=== PATIENT | male | born 1975 | race Caucasian/White ===

== ENCOUNTER 2018-07-10 10:10 | Emergency (ER) | payer SELFPAY ==
[2018-07-10] MEDS ORDERED: DEXAMETHASONE 10 MG/ML VIAL ONE (10:47)
--- NOTE | 2018-07-10 10:50 | EDPHYS ---
Physician Documentation [facility] Name: Eamon Ring Age: 42 yrs Sex: Male : 1975 Arrival Date: 07/10/2018 Time: 10:12 Bed 14 Private MD: None, None ED Physician Kane Barrera HPI: 07/10 10:35 This 42 yrs old Male presents to ER via Ambulatory with complaints of POISON pm1 ROSEANN. 10:36 The patient's rash thought to be caused by poison roseann. The rash is located on the pm1 abdomen, right hand and left leg. Onset: The symptoms/episode began/occurred 2 day(s) ago. Associated signs and symptoms: Pertinent positives: itching, Pertinent negatives: difficulty breathing, fever, swelling of lips, swelling of throat, swelling of tongue, wheezing. Severity of symptoms: in the emergency department the symptoms are worse. Treatment given at home: Patient was applying bleach on his rash. The patient has not recently seen a physician. Patient working on his yard two days ago and was exposed to poison roseann. Patient reports tetanus is within 5 years. Historical: - Allergies: 10:23 Demerol; aj1 - Home Meds: 10:23 None [Active]; aj1 - PMHx: 10:23 Crohn's; aj1 - PSHx: 10:23 None; aj1 - Immunization history:: Flu vaccine is not up to date. - Social history:: Smoking status: Patient/guardian denies using tobacco. - Ebola Screening: : Patient denies travel to an Ebola-affected area in the 21 days before illness onset. ROS: 10:39 Constitutional: Negative for fever, chills, and weight loss, Eyes: Negative for injury, pm1 pain, redness, and discharge, ENT: Negative for injury, pain, and discharge, Neck: Negative for injury, pain, and swelling, Cardiovascular: Negative for chest pain, palpitations, and edema, Respiratory: Negative for shortness of breath, cough, wheezing, and pleuritic chest pain, Abdomen/GI: Negative for abdominal pain, nausea, vomiting, diarrhea, and constipation, Back: Negative for injury and pain, MS/Extremity: Negative for injury and deformity. 10:39 Neuro: Negative for headache, weakness, numbness, tingling, and seizure. 10:39 Skin: Positive for rash, of the left leg and right hand and abdomen. Exam: 10:39 Constitutional: This is a well developed, well nourished patient who is awake, alert, pm1 and in no acute distress. Head/Face: Normocephalic, atraumatic. Eyes: Pupils equal round and reactive to light, extra-ocular motions intact. Lids and lashes normal. Conjunctiva and sclera are non-icteric and not injected. Cornea within normal limits. Periorbital areas with no swelling, redness, or edema. ENT: Nares patent. No nasal discharge, no septal abnormalities noted. Tympanic membranes are normal and external auditory canals are clear. Oropharynx with no redness, swelling, or masses, exudates, or evidence of obstruction, uvula midline. Mucous membranes moist. Neck: Trachea midline, no thyromegaly or masses palpated, and no cervical lymphadenopathy. Supple, full range of motion without nuchal rigidity, or vertebral point tenderness. No Meningismus. Chest/axilla: Normal chest wall appearance and motion. Nontender with no deformity. No lesions are appreciated. Cardiovascular: Regular rate and rhythm with a normal S1 and S2. No gallops, murmurs, or rubs. Normal PMI, no JVD. No pulse deficits. Respiratory: Lungs have equal breath sounds bilaterally, clear to auscultation and percussion. No rales, rhonchi or wheezes noted. No increased work of breathing, no retractions or nasal flaring. Abdomen/GI: Soft, non-tender, with normal bowel sounds. No distension or tympany. No guarding or rebound. No evidence of tenderness throughout. Back: No spinal tenderness. No costovertebral tenderness. Full range of motion. 10:39 MS/ Extremity: Pulses equal, no cyanosis. Neurovascular intact. Full, normal range of motion. 10:39 Skin: Appearance: normal except for affected area, consistent with contact dermatitis, on the left ward and dorsum of left foot and right hand and abdomen. 10:39 Neuro: Orientation: is normal, Motor: is normal, Sensation: is normal, no obvious gross deficits. Vital Signs: 10:23 BP 135 / 107; Pulse 102; Resp 18; Temp 98.3(O); Pulse Ox 95% on R/A; Weight 79.38 kg aj1 (R); Height 5 ft. 10 in. (177.80 cm) (R); Pain 0/10; 10:23 Body Mass Index 25.11 (79.38 kg, 177.80 cm) aj1 MDM: 10:26 Patient medically screened. pm1 10:46 Data reviewed: vital signs. Counseling: I had a detailed discussion with the patient pm1 and/or guardian regarding: the historical points, exam findings, and any diagnostic results supporting the discharge/admit diagnosis, the need for outpatient follow up, to return to the emergency department if symptoms worsen or persist or if there are any questions or concerns that arise at home. Administered Medications: 10:45 Drug: Decadron - Dexamethasone 10 mg {Note: By mouth.} Route: IVP; Site: Other; rb1 10:56 Follow up: Response: No adverse reaction rb1 Disposition: 11:58 Co-signature as Attending Physician, Kane Barrera MD. rn Disposition: 07/10/18 10:49 Discharged to Home. Impression: Unspecified contact dermatitis due to plants, except food - poison roseann. - Condition is Stable. - Discharge Instructions: Poison Roseann Dermatitis, [id number]. - Prescriptions for Benadryl 25 mg Oral Capsule - take 1 capsule by ORAL route every 6 hours As needed; 30 tablet. Pepcid 20 mg Oral Tablet - take 1 tablet by ORAL route every 12 hours for 10 days; 20 tablet. Prednisone 20 mg Oral Tablet - take 3 tablet by ORAL route once daily for 5 days; 15 tablet. Bactrim DS 800- 160 mg Oral Tablet - take 1 tablet by ORAL route every 12 hours for 10 days; 20 tablet. - Medication Reconciliation Form, Thank You Letter, Antibiotic Education form. - Follow up: Emergency Department; When: As needed; Reason: Worsening of condition. Follow up: Private Physician; When: 2 - 3 days; Reason: Recheck today's complaints, Continuance of care, Re-evaluation by your physician. - Problem is new. - Symptoms have improved. Signatures: Tiffany Hayden RN RN aj1 Kane Barrera MD MD rn Barber, Rebecca, RN RN rb1 Josh Krueger, ROSALIE ALARM TECHNICIAN pm1 Corrections: (The following items were deleted from the chart) 10:57 10:49 07/10/2018 10:49 Discharged to Home. Impression: Unspecified contact dermatitis rb1 due to plants, except food - poison roseann. Condition is Stable. Forms are Medication Reconciliation Form, Thank You Letter, Antibiotic Education, Prescription Opioid Use. Follow up: Emergency Department; When: As needed; Reason: Worsening of condition. Follow up: Private Physician; When: 2 - 3 days; Reason: Recheck today's complaints, Continuance of care, Re-evaluation by your physician. Problem is new. Symptoms have improved. pm1
--- NOTE | 2018-07-10 10:50 | ER ---
Nurse's Notes [facility] Name: Eamon Ring Age: 42 yrs Sex: Male : 1975 Arrival Date: 07/10/2018 Time: 10:12 Bed 14 Private MD: None, None Diagnosis: Unspecified contact dermatitis due to plants, except food-poison rodolfo Presentation: 07/10 10:18 Presenting complaint: Patient states: He got into poison rodolfo a couple days ago, but it aj1 keeps spreading. Rash noted to left hand, right hand, right lower arm, abdomen and bilateral legs. Transition of care: patient was not received from another setting of care. Onset of symptoms was July 08, 2018. Risk Assessment: Do you want to hurt yourself or someone else? Patient reports no desire to harm self or others. Initial Sepsis Screen: Does the patient meet any 2 criteria? No. Patient's initial sepsis screen is negative. Does the patient have a suspected source of infection? No. Patient's initial sepsis screen is negative. Care prior to arrival: None. 10:18 Method Of Arrival: Ambulatory aj1 10:18 Acuity: GUMARO 4 aj1 Triage Assessment: 10:23 General: Appears in no apparent distress. comfortable, Behavior is calm, cooperative, aj1 appropriate for age. Pain: Denies pain. Neuro: Level of Consciousness is awake, alert, obeys commands. Cardiovascular: Patient's skin is warm and dry. Respiratory: Airway is patent Respiratory effort is even, unlabored, Respiratory pattern is regular, symmetrical. Historical: - Allergies: 10:23 Demerol; aj1 - Home Meds: 10:23 None [Active]; aj1 - PMHx: 10:23 Crohn's; aj1 - PSHx: 10:23 None; aj1 - Immunization history:: Flu vaccine is not up to date. - Social history:: Smoking status: Patient/guardian denies using tobacco. - Ebola Screening: : Patient denies travel to an Ebola-affected area in the 21 days before illness onset. Screenin:30 Abuse screen: Denies threats or abuse. Nutritional screening: No deficits noted. rb1 Tuberculosis screening: No symptoms or risk factors identified. Fall Risk None identified. Assessment: 10:30 General: Appears in no apparent distress. comfortable, slender, Behavior is calm, rb1 cooperative. Neuro: Level of Consciousness is awake, alert, obeys commands, Oriented to person, place, time, situation. Cardiovascular: Capillary refill < 3 seconds is brisk in bilateral fingers. Respiratory: Airway is patent Respiratory effort is even, unlabored, Respiratory pattern is regular, symmetrical. GI: No signs and/or symptoms were reported involving the gastrointestinal system. : No signs and/or symptoms were reported regarding the genitourinary system. Derm: Rash noted that is itchy, red, vesicular, on bilateral hands, arms, abdomen, and left leg. Musculoskeletal: Swelling present in left first toe. 10:30 Pain: Denies pain. rb1 Vital Signs: 10:23 BP 135 / 107; Pulse 102; Resp 18; Temp 98.3(O); Pulse Ox 95% on R/A; Weight 79.38 kg aj1 (R); Height 5 ft. 10 in. (177.80 cm) (R); Pain 0/10; 10:23 Body Mass Index 25.11 (79.38 kg, 177.80 cm) aj1 ED Course: 10:12 Patient arrived in ED. sb2 10:12 None, None is Private Physician. sb2 10:22 Triage completed. aj1 10:23 Arm band placed on Patient placed in an exam room. aj1 10:26 Josh Krueger NP is PHCP. pm1 10:26 Kane Barrera MD is Attending Physician. pm1 10:30 Patient has correct armband on for positive identification. Bed in low position. Call rb1 light in reach. Side rails up X 1. Pulse ox on. NIBP on. 10:35 Maida Sotelo, RN is Primary Nurse. rb1 10:56 No provider procedures requiring assistance completed. Patient did not have IV access rb1 during this emergency room visit. Administered Medications: 10:45 Drug: Decadron - Dexamethasone 10 mg {Note: By mouth.} Route: IVP; Site: Other; rb1 10:56 Follow up: Response: No adverse reaction rb1 Outcome: 10:49 Discharge ordered by . pm1 10:56 Discharged to home ambulatory. rb1 10:56 Condition: stable 10:56 Discharge instructions given to patient, Instructed on discharge instructions, follow up and referral plans. medication usage, Demonstrated understanding of instructions, follow-up care, medications, Prescriptions given X 4. 10:57 Patient left the ED. rb1 Signatures: Tiffany Hayden RN RN aj1 Maida Sotelo RN RN rb1 Josh Krueger, INSTRUCTIONAL TECHNOLOGY SPECIALIST INSTRUCTIONAL TECHNOLOGY SPECIALIST pm1 Ayana Ibanez2
== END 2018-07-10 10:57 | disposition home or self-care (01) ==
LOC: ER 10:10
DX: L25.5 Unspecified contact dermatitis due to plants, except food (principal); Z88.5 Allergy status to narcotic agent; K50.90 Crohn's disease, unspecified, without complications
CPT/HCPCS: 96374; 99283; J1100

== ENCOUNTER 2019-01-30 10:49 | Emergency (ER) | payer SELFPAY ==
[2019-01-30] MEDS ORDERED: ACETAMINOPHEN 500 MG TAB ONE (11:20)
--- NOTE | 2019-01-30 11:47 | ER ---
Nurse's Notes [facility] Name: Eamon Ring Age: 43 yrs Sex: Male : 1975 Arrival Date: 01/30/2019 Time: 10:50 Bed 12 Private MD: Diagnosis: Influenza due to identified novel influenza A virus Presentation: 01/30 11:04 Presenting complaint: Patient states: I started having a cough 2 days ago and have just la1 gotten sicker and sicker, pt denies vomiting, reports fatigue and body aches. Transition of care: patient was not received from another setting of care. Onset of symptoms was January 30, 2019. Risk Assessment: Do you want to hurt yourself or someone else? Patient reports no desire to harm self or others. Initial Sepsis Screen: Does the patient meet any 2 criteria?. Care prior to arrival: None. 11:04 Method Of Arrival: Ambulatory la1 11:04 Acuity: GUMARO 4 la1 Historical: - Allergies: 11:05 Demerol; la1 - PMHx: 11:05 Crohn's; la1 - Immunization history:: Adult Immunizations up to date. - Social history:: Smoking status: Patient/guardian denies using tobacco. - Ebola Screening: : No symptoms or risks identified at this time. Screenin:23 Abuse screen: Denies threats or abuse. Nutritional screening: No deficits noted. la1 Tuberculosis screening: No symptoms or risk factors identified. Fall Risk None identified. Assessment: 11:23 General: Appears ill, Behavior is cooperative. Neuro: Level of Consciousness is awake, la1 alert, obeys commands, Oriented to person, place, time, situation. Cardiovascular: Capillary refill < 3 seconds Patient's skin is warm and dry. Respiratory: Airway is patent Respiratory effort is even, unlabored, Respiratory pattern is regular, symmetrical, Parent/caregiver reports the patient having cough that is. GI: Abdomen is round non-distended, Patient currently denies diarrhea, vomiting. : No signs and/or symptoms were reported regarding the genitourinary system. 11:30 General: Appears uncomfortable, ill, Behavior is calm, cooperative, Reports fatigue aa5 for. Pain: Complains of pain in whole body Pain currently is 8 out of 10 on a pain scale. Quality of pain is described as aching. Neuro: Level of Consciousness is awake, alert, obeys commands, Oriented to person, place, time, situation. Cardiovascular: Heart tones S1 S2 present Rhythm is regular. Respiratory: Reports cough Airway is patent Respiratory effort is even, unlabored, Respiratory pattern is regular, symmetrical, Breath sounds are clear bilaterally. GI: Patient currently denies nausea, vomiting. : No signs and/or symptoms were reported regarding the genitourinary system. EENT: No signs and/or symptoms were reported regarding the EENT system. Derm: Skin is dry, Skin is flushed, Skin temperature is warm. Musculoskeletal: Range of motion: intact in all extremities. Vital Signs: 11:05 BP 127 / 80; Pulse 112; Resp 18; Temp 102; Pulse Ox 100% on R/A; Weight 77.11 kg; la1 Height 5 ft. 10 in. (177.80 cm); 11:48 BP 120 / 67; Pulse 118; Resp 20 S; Temp 102.7(O); Pulse Ox 94% on R/A; aa5 11:05 Body Mass Index 24.39 (77.11 kg, 177.80 cm) la1 11:48 ROSALIE Nichols notified of current VS, no further orders received. DEMOGRAPHER states to d/c pt now. aa5 ED Course: 10:50 Patient arrived in ED. as 11:05 Triage completed. la1 11:05 Arm band placed on left wrist. la1 11:17 Magdalena Mckinney FNP-C [facility]. snw 11:17 Luis Manuel Ware MD is Attending Physician. snw 11:23 Call light in reach. la1 11:37 Sommer Husain, CARLOS MANUEL is Primary Nurse. aa5 11:50 No provider procedures requiring assistance completed. aa5 11:50 Patient did not have IV access during this emergency room visit. aa5 Administered Medications: 11:10 Drug: Tylenol 1000 mg Route: PO; la1 11:48 Follow up: Response: No adverse reaction; Temperature is increased aa5 Outcome: 11:47 Discharge ordered by . snw 11:55 Discharged to home ambulatory. aa5 11:55 Condition: stable 11:55 Discharge instructions given to patient, Instructed on discharge instructions, follow up and referral plans. medication usage, Demonstrated understanding of instructions, follow-up care, medications, Prescriptions given X 2. 12:01 Patient left the ED. aa5 Signatures: Magdalena Mckinney, BUSINESS AFFAIRS MANAGER-C BUSINESS AFFAIRS MANAGER-Csnw Paola Sewell Audri, RN RN aa5 Oscar Chadwick RN RN la1
--- NOTE | 2019-01-30 11:47 | EDPHYS ---
Physician Documentation [facility] Name: Eamon Ring Age: 43 yrs Sex: Male : 1975 Arrival Date: 01/30/2019 Time: 10:50 Bed 12 Private MD: ED Physician Luis Manuel Ware HPI: 01/30 11:28 This 43 yrs old Male presents to ER via Ambulatory with complaints of Flu snw Symptoms. 11:28 This 43 yrs old Male presents to ER via Ambulatory with complaints of Flu snw Symptoms. 11:28 The patient or guardian reports cough, flu symptoms, low-grade fever, myalgias, no snw appetite. Onset: The symptoms/episode began/occurred suddenly, 2 day(s) ago. Modifying factors: The symptoms are alleviated by nothing. Severity of symptoms: At their worst the symptoms were moderate severe in the emergency department the symptoms are unchanged. It is unknown whether or not the patient has had similar symptoms in the past. The patient has not recently seen a physician. PMH of Crohn's. Historical: - Allergies: 11:05 Demerol; la1 - PMHx: 11:05 Crohn's; la1 - Immunization history:: Adult Immunizations up to date. - Social history:: Smoking status: Patient/guardian denies using tobacco. - Ebola Screening: : No symptoms or risks identified at this time. ROS: 11:26 Constitutional: Negative for fever, chills, and weight loss, Eyes: Negative for injury, snw pain, redness, and discharge, ENT: Negative for injury, pain, and discharge, Neck: Negative for injury, pain, and swelling, Respiratory: Negative for shortness of breath, cough, wheezing, and pleuritic chest pain. 11:26 Abdomen/GI: Negative for abdominal pain, nausea, vomiting, diarrhea, and constipation, Back: Negative for injury and pain, : Negative for injury, bleeding, discharge, and swelling, MS/Extremity: Negative for injury and deformity, Skin: Negative for injury, rash, and discoloration, Neuro: Negative for headache, weakness, numbness, tingling, and seizure, Psych: Negative for depression, anxiety, suicide ideation, homicidal ideation, and hallucinations. 11:26 Cardiovascular: Positive for chest pain, with cough. 11:26 Respiratory: Positive for cough. Exam: 11:26 Head/Face: Normocephalic, atraumatic. Eyes: Pupils equal round and reactive to light, snw extra-ocular motions intact. Lids and lashes normal. Conjunctiva and sclera are non-icteric and not injected. Cornea within normal limits. Periorbital areas with no swelling, redness, or edema. ENT: Nares patent. No nasal discharge, no septal abnormalities noted. Tympanic membranes are normal and external auditory canals are clear. Oropharynx with no redness, swelling, or masses, exudates, or evidence of obstruction, uvula midline. Mucous membranes moist. Neck: Trachea midline, no thyromegaly or masses palpated, and no cervical lymphadenopathy. Supple, full range of motion without nuchal rigidity, or vertebral point tenderness. No Meningismus. Chest/axilla: Normal chest wall appearance and motion. Nontender with no deformity. No lesions are appreciated. 11:26 Abdomen/GI: Soft, non-tender, with normal bowel sounds. No distension or tympany. No guarding or rebound. No evidence of tenderness throughout. Back: No spinal tenderness. No costovertebral tenderness. Full range of motion. Skin: Warm, dry with normal turgor. Normal color with no rashes, no lesions, and no evidence of cellulitis. MS/ Extremity: Pulses equal, no cyanosis. Neurovascular intact. Full, normal range of motion. Neuro: Awake and alert, GCS 15, oriented to person, place, time, and situation. Cranial nerves II-XII grossly intact. Motor strength 5/5 in all extremities. Sensory grossly intact. Cerebellar exam normal. Normal gait. 11:26 Constitutional: The patient appears alert, frail, uncomfortable. 11:26 Cardiovascular: Rate: tachycardic. 11:26 Respiratory: the patient does not display signs of respiratory distress, Respirations: normal, Breath sounds: + upper airway congestion. cough. Vital Signs: 11:05 BP 127 / 80; Pulse 112; Resp 18; Temp 102; Pulse Ox 100% on R/A; Weight 77.11 kg; la1 Height 5 ft. 10 in. (177.80 cm); 11:48 BP 120 / 67; Pulse 118; Resp 20 S; Temp 102.7(O); Pulse Ox 94% on R/A; aa5 11:05 Body Mass Index 24.39 (77.11 kg, 177.80 cm) la1 11:48 Magdalena, CHEMIST WATER PURIFICATION notified of current VS, no further orders received. CHEMIST WATER PURIFICATION states to d/c pt now. aa5 MDM: 11:17 Patient medically screened. snw 11:48 Data reviewed: vital signs, nurses notes. Data interpreted: Pulse oximetry: on room air snw is 100 %. Interpretation: normal. Counseling: I had a detailed discussion with the patient and/or guardian regarding: the historical points, exam findings, and any diagnostic results supporting the discharge/admit diagnosis, lab results, the need for outpatient follow up, for definitive care, to return to the emergency department if symptoms worsen or persist or if there are any questions or concerns that arise at home. Special discussion: Based on the history and exam findings, there is no indication for further emergent testing or inpatient evaluation. I discussed with the patient/guardian the need to see the wire photo operator for further evaluation of the symptoms. I discussed with the patient/guardian the need to see the primary care provider for further evaluation of the symptoms. 01/30 11:06 Order name: Strep; Complete Time: 11:49 la1 01/30 11:06 Order name: Flu; Complete Time: 11:46 la1 01/30 11:48 Order name: Throat Culture EDMS Administered Medications: 11:10 Drug: Tylenol 1000 mg Route: PO; la1 11:48 Follow up: Response: No adverse reaction; Temperature is increased aa5 Disposition: 01/31 11:53 Co-signature as Attending Physician, Luis Manuel Ware MD. Disposition: 01/30/19 11:47 Discharged to Home. Impression: Influenza due to identified novel influenza A virus. - Condition is Stable. - Discharge Instructions: Fever, Adult, Influenza, Adult, Cough, Adult, Rehydration, Adult. - Prescriptions for Ultram 50 mg Oral Tablet - take 1 tablet by ORAL route every 6 hours As needed; 15 tablet. Zofran 4 mg Oral Tablet - take 1 tablet by ORAL route every 12 hours As needed; 6 tablet. - Work release form, Medication Reconciliation Form, Thank You Letter, Antibiotic Education, Prescription Opioid Use form. - Follow up: Private Physician; When: 2 - 3 days; Reason: Recheck today's complaints, Continuance of care, Re-evaluation by your physician. Follow up: Emergency Department; When: As needed; Reason: Worsening of condition. Signatures: Dispatcher [employer] EDMS Magdalena Mckinney, TRUCK AND TRANSPORT MECHANIC-C TRUCK AND TRANSPORT MECHANIC-Csnw Sommer Husain RN RN aa5 Oscar Chadwick RN RN la1 Luis Manuel Ware MD MD gs Corrections: (The following items were deleted from the chart) 01/30 12:01 11:47 01/30/2019 11:47 Discharged to Home. Impression: Influenza due to identified aa5 novel influenza A virus. Condition is Stable. Forms are Medication Reconciliation Form, Thank You Letter, Antibiotic Education, Prescription Opioid Use. Follow up: Private Physician; When: 2 - 3 days; Reason: Recheck today's complaints, Continuance of care, Re-evaluation by your physician. Follow up: Emergency Department; When: As needed; Reason: Worsening of condition. snw
== END 2019-01-30 12:01 | disposition home or self-care (01) ==
LOC: ER 10:49
DX: J10.1 Influenza due to other identified influenza virus with other respiratory manifestations (principal); Z88.5 Allergy status to narcotic agent
CPT/HCPCS: 87070; 87081; 87804; 99283

== ENCOUNTER 2019-02-07 13:01 | Emergency (ER) | payer SELFPAY ==
[2019-02-07] MEDS ORDERED: ACETAMINOPHEN 500 MG TAB ONE (13:31)
--- NOTE | 2019-02-07 13:52 | RAD REPORT ---
EXAM DESCRIPTION: RAD - Chest Single View - 02/07/2019 1:47 pm CLINICAL HISTORY: COUGH Chest pain. COMPARISON: No comparisons FINDINGS: Portable technique limits examination quality. Small opacity is present in the left lung base, likely representing atelectasis or early pneumonia. T he lungs are otherwise clear. The heart is normal in size. No displaced fractures.
--- NOTE | 2019-02-07 14:40 | ER ---
Nurse's Notes [facility] Name: Eamon Ring Age: 43 yrs Sex: Male : 1975 Arrival Date: 02/07/2019 Time: 13:04 Bed 12 Private MD: None, None Diagnosis: Pneumonia due to other specified bacteria Presentation: 02/07 13:12 Presenting complaint: Patient states: "I tested positive for flu test B last week, but ss it's just getting worse.". Transition of care: patient was not received from another setting of care. Onset of symptoms was February 01, 2019. Risk Assessment: Do you want to hurt yourself or someone else? Patient reports no desire to harm self or others. Initial Sepsis Screen: Does the patient meet any 2 criteria? No. Patient's initial sepsis screen is negative. Does the patient have a suspected source of infection? No. Patient's initial sepsis screen is negative. Care prior to arrival: None. 13:12 Method Of Arrival: Ambulatory ss 13:12 Acuity: GUMARO 4 ss Historical: - Allergies: 13:15 Demerol; ss - PMHx: 13:15 Crohn's; ss - Immunization history:: Adult Immunizations up to date. - Social history:: Smoking status: Patient/guardian denies using tobacco. - Ebola Screening: : Patient denies exposure to infectious person Patient denies travel to an Ebola-affected area in the 21 days before illness onset. Screenin:30 Abuse screen: No signs of abuse noted. Nutritional screening: No deficits noted. aa5 Tuberculosis screening: No symptoms or risk factors identified. Fall Risk None identified. Assessment: 13:30 General: Appears uncomfortable, Behavior is calm, cooperative, Reports fever for > 3 aa5 days. Pain: Complains of pain in whole body Pain currently is 7 out of 10 on a pain scale. Quality of pain is described as aching, Pain began approximately 1 week ago Is continuous. Neuro: Level of Consciousness is awake, alert, obeys commands, Oriented to person, place, time, situation. Cardiovascular: Heart tones S1 S2 present Rhythm is regular. Respiratory: Reports cough x 1 week approximately Airway is patent Respiratory effort is even, unlabored, Respiratory pattern is regular, symmetrical, Breath sounds are clear bilaterally. GI: No signs and/or symptoms were reported involving the gastrointestinal system. : No signs and/or symptoms were reported regarding the genitourinary system. EENT: No signs and/or symptoms were reported regarding the EENT system. Derm: Skin is pink, warm \\T\\ dry. Musculoskeletal: Range of motion: intact in all extremities. 15:02 Reassessment: Patient is alert, oriented x 3, equal unlabored respirations, skin aa5 warm/dry/pink. Vital Signs: 13:15 BP 117 / 88; Pulse 112; Resp 18 S; Temp 99.8(TE); Pulse Ox 95% on R/A; Weight 77.11 kg; ss Height 5 ft. 10 in. (177.80 cm); 14:55 Pulse 93; Resp 18 S; Pulse Ox 96% on R/A; aa5 13:15 Body Mass Index 24.39 (77.11 kg, 177.80 cm) ED Course: 13:04 Patient arrived in ED. dl4 13:04 None, None is Private Physician. dl4 13:13 Triage completed. ss 13:15 Arm band placed on right wrist. ss 13:28 Kevin Faulkner PA is PHCP. cp 13:28 Kane Barrera MD is Attending Physician. cp 13:29 Sommer Husain, CARLOS MANUEL is Primary Nurse. aa5 13:30 Patient has correct armband on for positive identification. Bed in low position. Call aa5 light in reach. Side rails up X 1. Adult w/ patient. 13:48 XRAY Chest (1 view) In Process Unspecified. EDMS 13:48 X-ray completed. Portable x-ray completed in exam room. Patient tolerated procedure mh1 well. 14:45 No provider procedures requiring assistance completed. Patient did not have IV access aa5 during this emergency room visit. Administered Medications: 13:21 Drug: Tylenol 1000 mg Route: PO; ss 14:45 Drug: Tamiflu 75 mg Route: PO; aa5 14:45 Drug: Doxycycline 100 mg Route: PO; aa5 Outcome: 14:39 Discharge ordered by . cp 15:02 Discharged to home ambulatory, with friend. aa5 15:02 Condition: stable 15:02 Discharge instructions given to patient, Instructed on discharge instructions, follow up and referral plans. medication usage, Demonstrated understanding of instructions, follow-up care, medications, Prescriptions given X 3. 15:02 Patient left the ED. aa5 Signatures: Dispatcher [employer] EDMS Mariangel Haas mh1 Sommer Husain RN RN aa5 Tanya Guevara RN RN ss Kevin Faulkner PA PA cp Luna, David dl4 Corrections: (The following items were deleted from the chart) 13:18 13:15 BP 117 / 88; Pulse 112bpm; Resp 95bpm; Spontaneous; Pulse Ox 95% RA; Temp 99.8F ss Temporal; 77.11 kg; Height 5 ft. 10 in.; BMI: 24.3; ss
--- NOTE | 2019-02-07 14:40 | EDPHYS ---
Physician Documentation [facility] Name: Eamon Ring Age: 43 yrs Sex: Male : 1975 Arrival Date: 02/07/2019 Time: 13:04 Bed 12 Private MD: None, None ED Physician Kane Barrera HPI: 02/07 14:15 This 43 yrs old Male presents to ER via Ambulatory with complaints of Flu cp Symptoms. 14:15 The patient or guardian reports cough, that is constant, with productive sputum. cp 14:15 Onset: The symptoms/episode began/occurred 1 week(s) ago. Associated signs and cp symptoms: Pertinent positives: fever. Patient reports he was diagnosed with influenza 1 week ago after being seen in [facility] ED. Patient denies being treated with tamiflu and reports symptoms have worsened. Historical: - Allergies: 13:15 Demerol; ss - PMHx: 13:15 Crohn's; ss - Immunization history:: Adult Immunizations up to date. - Social history:: Smoking status: Patient/guardian denies using tobacco. - Ebola Screening: : Patient denies exposure to infectious person Patient denies travel to an Ebola-affected area in the 21 days before illness onset. ROS: 14:20 Constitutional: Negative for fever, poor PO intake. cp 14:20 Eyes: Negative for injury, pain, redness, and discharge. cp 14:20 ENT: Positive for sore throat, Negative for drainage from ear(s), ear pain, difficulty swallowing, difficulty handling secretions. 14:20 Cardiovascular: Negative for chest pain. 14:20 Respiratory: Positive for cough, Negative for wheezing. 14:20 Abdomen/GI: Negative for abdominal pain, vomiting, diarrhea, constipation. 14:20 Skin: Negative for cellulitis, rash. 14:20 Neuro: Negative for altered mental status, headache. 14:20 All other systems are negative. Exam: 14:25 Constitutional: The patient appears in no acute distress, alert, awake, cp non-diaphoretic, non-toxic, well developed, well nourished. 14:25 Head/Face: Normocephalic, atraumatic. cp 14:25 Eyes: Periorbital structures: appear normal, Conjunctiva: normal, no exudate, no injection, Sclera: no appreciated abnormality, Lids and lashes: appear normal, bilaterally. 14:25 ENT: External ear(s): are unremarkable, Ear canal(s): are normal, clear, TM's: bulging, is not appreciated, bilaterally, dullness, bilaterally, erythema, is not appreciated, bilaterally, Nose: is normal, Mouth: Lips: moist, Oral mucosa: moist, Posterior pharynx: Airway: no evidence of obstruction, patent, Tonsils: with erythema, no enlargement, no exudate, Uvula: midline, erythema, that is moderate, exudate, is not appreciated. 14:25 Neck: ROM/movement: is normal, is supple, no range of motions limitations, no meningismus, no nuchal rigidity. 14:25 Chest/axilla: Inspection: normal, Palpation: is normal, no crepitus, no tenderness. 14:25 Cardiovascular: Rate: tachycardic, Rhythm: regular. 14:25 Respiratory: the patient does not display signs of respiratory distress, Respirations: normal, no use of accessory muscles, no retractions, no splinting, no tachypnea, labored breathing, is not present, Breath sounds: decreased breath sounds, are not appreciated, stridor, is not appreciated, + upper airway congestion. wheezing: is not appreciated. 14:25 Abdomen/GI: Exam negative for discomfort, distension, guarding, Inspection: abdomen appears normal. 14:25 Skin: cellulitis, is not appreciated, no rash present. Vital Signs: 13:15 BP 117 / 88; Pulse 112; Resp 18 S; Temp 99.8(TE); Pulse Ox 95% on R/A; Weight 77.11 kg; ss Height 5 ft. 10 in. (177.80 cm); 14:55 Pulse 93; Resp 18 S; Pulse Ox 96% on R/A; aa5 13:15 Body Mass Index 24.39 (77.11 kg, 177.80 cm) ss MDM: 13:28 Patient medically screened. cp 14:38 Data reviewed: vital signs, nurses notes, lab test result(s), radiologic studies, plain cp films. 14:38 Differential diagnosis: bronchitis, flu, URI. Test interpretation: by ED physician or cp midlevel provider: plain radiologic studies. Counseling: I had a detailed discussion with the patient and/or guardian regarding: the historical points, exam findings, and any diagnostic results supporting the discharge/admit diagnosis, lab results, radiology results, to return to the emergency department if symptoms worsen or persist or if there are any questions or concerns that arise at home. 02/07 13:12 Order name: Flu; Complete Time: 13:57 02/07 13:59 Interpretation: Reviewed. 02/07 13:12 Order name: Strep; Complete Time: 13:57 ss 02/07 13:59 Interpretation: Reviewed. 02/07 13:18 Order name: XRAY Chest (1 view); Complete Time: 13:57 02/07 13:57 Interpretation: Report review. 02/07 13:52 Order name: Throat Culture EDMS Administered Medications: 13:21 Drug: Tylenol 1000 mg Route: PO; ss 14:45 Drug: Tamiflu 75 mg Route: PO; aa5 14:45 Drug: Doxycycline 100 mg Route: PO; aa5 Disposition: 15:22 Co-signature as Attending Physician, Kane Barrera MD. rn Disposition: 02/07/19 14:39 Discharged to Home. Impression: Pneumonia due to other specified bacteria. - Condition is Stable. - Discharge Instructions: Community-Acquired Pneumonia, Adult. - Prescriptions for Ibuprofen 800 mg Oral Tablet - take 1 tablet by ORAL route every 8 hours As needed take with food; 30 tablet. Doxycycline Monohydrate 100 mg Oral Tablet - take 1 tablet by ORAL route every 12 hours for 10 days; 20 tablet. Tamiflu 75 mg Oral Capsule - take 1 tablet by ORAL route every 12 hours for 5 days; 10 tablet. - Work release form, Medication Reconciliation Form, Thank You Letter, Antibiotic Education, Prescription Opioid Use form. - Follow up: Private Physician; When: 1 - 2 days; Reason: Recheck today's complaints. - Problem is new. - Symptoms have improved. Signatures: Dispatcher [employer] EDMS Kane Barrera MD MD rn Calderon, Audri, RN RN aa5 Smirch, Shelby, RN RN ss Page, Corey, PA PA cp Corrections: (The following items were deleted from the chart) 15:02 14:39 02/07/2019 14:39 Discharged to Home. Impression: Pneumonia due to other specified aa5 bacteria. Condition is Stable. Forms are Medication Reconciliation Form, Thank You Letter, Antibiotic Education, Prescription Opioid Use. Follow up: Private Physician; When: 1 - 2 days; Reason: Recheck today's complaints. Problem is new. Symptoms have improved. cp
[2019-02-07] MEDS ORDERED: OSELTAMIVIR 75 MG CAP ONE (15:06)
[2019-02-07] MEDS ORDERED: DOXYCYCLINE 100 MG CAP PO ONE (15:06)
== END 2019-02-07 15:02 | disposition home or self-care (01) ==
LOC: ER 13:01
DX: J15.8 Pneumonia due to other specified bacteria (principal); K50.90 Crohn's disease, unspecified, without complications; Z88.5 Allergy status to narcotic agent
CPT/HCPCS: 71045; 87070; 87081; 87804; 99283